=== PATIENT | female | born 1975 | race Caucasian/White ===

== ENCOUNTER 2017-05-11 11:53 | Inpatient (IN) | payer OTHER ==
[2017-05-11] VITALS (11 sets, daily range): BP systolic 103–129; BP diastolic 55–64
[~2017-05-11] VITALS: Ht 157.5 cm; Wt 82.5 kg
[2017-05-11 13:20] LABS: HEMATOCRIT 36.7 % (36.0-46.0); HEMOGLOBIN 12.3 G/DL (11.9-15.5); MCH 29.4 PG (29.0-34.0); MCHC 33.5 G/DL (30.0-36.0); MCV 87.8 FL (83-99); PLATELET COUNT 167 K/uL (156-360); RBC DIS.WIDTH-SD 44.9 % (39-53); RED BLOOD COUNT 4.18 M/uL (3.80-5.20); WHITE BLOOD COUNT 9.4 K/uL (4.1-10.2)
[2017-05-11] MEDS ORDERED: IBUPROFEN800 MG PO (21:16)
[2017-05-12 05:51] LABS: BASOPHIL (%) 0.1 % (0-1); EOSINOPHIL (%) 0.1 % (0-5); HEMOGLOBIN 11.2 G/DL (11.9-15.5); IMMATURE GRANULOCYTE (%) 0.5 % (0.0-0.7); LYMPHOCYTE (%) 12.2 % (15-42); LYMPHOCYTE COUNT 1.6 K/uL (1.0-2.8); MCH 28.8 PG (29.0-34.0); MCHC 32.9 G/DL (30.0-36.0); MCV 87.4 FL (83-99); MONOCYTE (%) 6.9 % (3-12); MONOCYTE COUNT 0.9 K/uL (0-0.8); NEUTROPHIL (%) 80.2 % (45-76); NEUTROPHIL COUNT 10.6 K/uL (1.8-6.4); PLATELET COUNT 180 K/uL (156-360); RBC DIS.WIDTH-SD 43.8 % (39-53); RED BLOOD COUNT 3.89 M/uL (3.80-5.20); WHITE BLOOD COUNT 13.2 K/uL (4.1-10.2)
[2017-05-12 07:10] VITALS: BP 117/54
[2017-05-12 14:53] VITALS: BP 130/66
== END 2017-05-13 16:50 | disposition home or self-care (01) | DRG 775 ==
LOC: LDRP-OP 11:53 → 2WEST 11:54
PROVIDERS: Midwife
PROC: 10E0XZZ Delivery of Products of Conception, External Approach (ICD-10-PCS; principal; 2017-05-11)
DX: O42.02 Full-term premature rupture of membranes, onset of labor within 24 hours of rupture (principal); O62.2 Other uterine inertia; Z3A.40 40 weeks gestation of pregnancy; Z37.0 Single live birth
CPT/HCPCS: 85025; 85027; J7120